=== PATIENT | female | born 1935 | race Caucasian/White ===

== ENCOUNTER 2020-10-13 12:18 | Inpatient (IN) | payer MEDICARE, SELFPAY ==
[~2020-10-13] VITALS: Ht 152.4 cm; Wt 63.5 kg
[2020-10-13 14:55] LABS: HEMOGLOBIN 13.9 gm/dl (12.3-15.3); RED BLOOD COUNT 4.68 M/UL (4.00-5.10); WHITE BLOOD COUNT 5.5 K/UL (4.5-11.0)
[2020-10-13 15:20] LABS: BUN/CREATININE RATIO 20 (0-10)
[2020-10-14 05:34] LABS: HEMOGLOBIN 12.8 gm/dl (12.3-15.3); RED BLOOD COUNT 4.36 M/UL (4.00-5.10)
[2020-10-14 05:38] LABS: WHITE BLOOD COUNT 2.8 K/UL (4.5-11.0)
[2020-10-14 06:01] LABS: BUN/CREATININE RATIO 25 (0-10)
[2020-10-15 04:24] LABS: HEMOGLOBIN 12.7 gm/dl (12.3-15.3); RED BLOOD COUNT 4.35 M/UL (4.00-5.10); WHITE BLOOD COUNT 7.6 K/UL (4.5-11.0)
[2020-10-15 04:44] LABS: BUN/CREATININE RATIO 28 (0-10)
[2020-10-16 06:22] LABS: BUN/CREATININE RATIO 31 (0-10)
[2020-10-16 06:41] LABS: HEMOGLOBIN 12.7 gm/dl (12.3-15.3); RED BLOOD COUNT 4.38 M/UL (4.00-5.10); WHITE BLOOD COUNT 5.9 K/UL (4.5-11.0)
[2020-10-17 06:40] LABS: HEMOGLOBIN 14.2 gm/dl (12.3-15.3); RED BLOOD COUNT 4.76 M/UL (4.00-5.10)
[2020-10-17 07:05] LABS: BUN/CREATININE RATIO 33 (0-10)
[2020-10-17] MEDS ORDERED: AMLODIPINE BESYL5 MG PO (09:38)
[2020-10-17] MEDS ORDERED: TAMIFLU 75 MG C75 MG PO (09:38)
[2020-10-17] MEDS ORDERED: DECADRON4 MG PO (09:38)
[2020-10-17] MEDS ORDERED: HYDROCHLOROTHIA25 MG PO (09:38)
== END 2020-10-17 16:42 | disposition home or self-care (01) | DRG 177 ==
LOC: ER1 12:18 → ZEROF 16:35 → M/S 10-14 15:35
PROVIDERS: Family Medicine; ADMIT Family Medicine
DX: U07.1 COVID-19 (principal); J96.01 Acute respiratory failure with hypoxia; B37.0 Candidal stomatitis; J98.11 Atelectasis; J10.1 Influenza due to other identified influenza virus with other respiratory manifestations; E87.6 Hypokalemia; I10 Essential (primary) hypertension; Z90.49 Acquired absence of other specified parts of digestive tract; Z90.710 Acquired absence of both cervix and uterus; D72.819 Decreased white blood cell count, unspecified; Z79.899 Other long term (current) drug therapy
CPT/HCPCS: 36415; 36600; 71045; 80053; 81001; 82550; 82553; 82728; 82803; 83615; 83690; 83735; 83874; 83880; 84484; 85025; 85027; 85610; 85652; 86140; 86900; 86901; 86927; 87635; 94640; 94664; 94760; 96365; 96366; 96372; 96375; 96376; 99285; J1100; J1650; J2405; J7030

== ENCOUNTER 2021-02-11 15:44 | Emergency (ER) | payer MEDICARE ==
[~2021-02-11 15:44] MED LIST: AMLODIPINE BESYL5 MG PO; DECADRON4 MG PO; HYDROCHLOROTHIA25 MG PO; TAMIFLU 75 MG C75 MG PO
[2021-02-11 17:41] LABS: HEMOGLOBIN 13.7 gm/dl (12.3-15.3); RED BLOOD COUNT 4.53 M/UL (4.00-5.10); WHITE BLOOD COUNT 6.1 K/UL (4.5-11.0)
[2021-02-11 18:02] LABS: BUN/CREATININE RATIO 23 (0-10)
== END 2021-02-11 23:15 | disposition left against medical advice (07) ==
LOC: ER1 15:44
PROVIDERS: Emergency Medicine
DX: I44.7 Left bundle-branch block, unspecified (principal); I10 Essential (primary) hypertension; R53.1 Weakness; Z20.822 Contact with and (suspected) exposure to COVID-19; Z90.49 Acquired absence of other specified parts of digestive tract; Z90.710 Acquired absence of both cervix and uterus
CPT/HCPCS: 70450; 71045; 80053; 82550; 82553; 83874; 84484; 85025; 85610; 85730; 93005; 96374; 99285; J0360; U0002

== ENCOUNTER 2021-02-18 16:25 | Emergency (ER) | payer MEDICARE | END 2021-02-18 18:10 | disposition short-term general hospital (02) | LOC: ER1 16:25 | DX: I63.9 Cerebral infarction, unspecified (principal); I10 Essential (primary) hypertension; R29.701 NIHSS score 1 | CPT/HCPCS: 70551; 99285 ==